=== PATIENT | female | born 1980 | race Caucasian/White ===

== ENCOUNTER 2017-05-17 07:30 | Emergency (ER) | payer SELFPAY ==
[~2017-05-17] VITALS: Ht 167.6 cm; Wt 107.0 kg
[2017-05-17 07:41] VITALS: BP 137/94; PULSE 74; RESP 18; TEMP 97.7; O2SAT 100
[2017-05-17] MEDS ORDERED: HYDROmorphone HCL PF 1 MG/ML VIAL IV PUSH ONE ×2 (08:30→09:00)
[2017-05-17] MEDS ORDERED: ONDANSETRON HCL 4 MG/2 ML VIAL IV PUSH ONE (08:30)
[2017-05-17] MEDS ORDERED: SODIUM CHLOR 0.9% 1000 ML INJ 1,000 ML IV ONE (08:30)
--- NOTE | 2017-05-17 08:38 | PD ---
HPI Chief Complaint: Abdominal Pain Time Seen by Provider: 08:26 Travel History International Travel<30 days: No Contact w/Intl Traveler<30days: No Traveled to known affect area: No History of Present Illness HPI This 37-year-old female is complaining of abdominal pain. She says she woke up at 2:00 this morning with the pain and the pain is quite severe. She has vomited repeatedly. She had a similar episode to this about 2 months ago when she was in [place] which is where she lives. At that time she was told that she had a gallbladder attack. She has done well since that episode. She has no history of hypertension or diabetes. She has had a tubal ligation she had eaten ribs last night prior to the onset of the pain. PFSH Past Medical History Gastrointestinal Disorders: Yes (GALL STONES) ?: Not LMP: 3-4 WEEKS AGO Tubal Ligation: Yes (L OVARY REMOVED) Social History Alcohol Use: No Tobacco Use: No Substance Use: No Allergies-Medications (Allergen,Severity, Reaction): Coded Allergies: No Known Allergies (Unverified , 05/17/17) Reported Meds & Prescriptions Reported Meds & Active Scripts Active Percocet (Oxycodone-Acetaminophen) 7.5-325 mg Tab 1 Tab PO Q4H PRN Zofran Odt (Ondansetron Odt) 4 Mg Tab 4 Mg SL Q6HR PRN Review of Systems General / Constitutional: No: Fever Eyes: No: Diploplia, Blurred Vision HENT: No: Headaches, Vertigo Cardiovascular: No: Chest Pain or Discomfort, Palpitations Respiratory: No: Cough, Shortness of Breath Gastrointestinal: Positive: Abdominal Pain, No: Vomiting Genitourinary: No: Frequency, Dysuria Musculoskeletal: No: Myalgias, Arthralgias Skin: No Rash Neurologic: No: Weakness Endocrine: No: Heat Intolerance Hematologic/Lymphatic: No: Easy Bruising Physical Exam Narrative GENERAL: Well-developed female SKIN: Focused skin assessment warm/dry. HEAD: Atraumatic. Normocephalic. EYES: Pupils equal and round. No scleral icterus. No injection or drainage. ENT: No nasal bleeding or discharge. Mucous membranes pink and moist. NECK: Trachea midline. No JVD. CARDIOVASCULAR: Regular rate and rhythm. No murmur appreciated. RESPIRATORY: No accessory muscle use. Clear to auscultation. Breath sounds equal bilaterally. GASTROINTESTINAL: Abdomen soft, there is epigastric tenderness without rigidity. No abnormal masses MUSCULOSKELETAL: No obvious deformities. No clubbing. No cyanosis. No edema. NEUROLOGICAL: Awake and alert. No obvious cranial nerve deficits. Motor grossly within normal limits. Normal speech. PSYCHIATRIC: Appropriate mood and affect; insight and judgment normal. Data Data Last Documented VS Vital Signs Date Time Temp Pulse Resp B/P Pulse Ox O2 Delivery O2 Flow Rate FiO2 05/17/17 07:41 97.7 74 18 137/94 100 Room Air Orders Complete Blood Count With Diff (05/17/17 08:30) Comprehensive Metabolic Panel (05/17/17 08:30) Lipase (05/17/17 08:30) Urinalysis - C+S If Indicated (05/17/17 08:30) Sodium Chlor 0.9% 1000 Ml Inj (Ns 1000 M (05/17/17 08:30) Ondansetron Inj (Zofran Inj) (05/17/17 08:30) Hydromorphone Pf Inj (Dilaudid Pf Inj) (05/17/17 08:30) Us Abdomen Gallbladder (05/17/17 08:47) Hydromorphone Pf Inj (Dilaudid Pf Inj) (05/17/17 09:00) Urine Culture (05/17/17 08:46) Ampicillin-Sulbactam Inj (Unasyn Inj) (05/17/17 10:30) Admit To Inpatient (05/17/17 ) Vital Signs (Adult) Q4H (05/17/17 10:39) Activity Oob Ad Purnima (05/17/17 10:39) Diet Npo (05/17/17 Lunch) Sodium Chlor 0.9% 1000 Ml Inj (Ns 1000 M (05/17/17 11:00) Ondansetron Inj (Zofran Inj) (05/17/17 10:45) Piperacil-Tazo 4.5 Gm Premix (Zosyn 4.5 (05/17/17 16:00) Hydromorphone Pf Inj (Dilaudid Pf Inj) (05/17/17 10:45) Labs Laboratory Tests Test 05/17/17 08:46 White Blood Count 7.6 TH/MM3 Red Blood Count 4.03 MIL/MM3 Hemoglobin 12.8 GM/DL Hematocrit 37.7 % Mean Corpuscular Volume 93.6 FL Mean Corpuscular Hemoglobin 31.6 PG Mean Corpuscular Hemoglobin 33.8 % Concent Red Cell Distribution Width 13.6 % Platelet Count 212 TH/MM3 Mean Platelet Volume 8.2 FL Neutrophils (%) (Auto) 84.3 % Lymphocytes (%) (Auto) 12.3 % Monocytes (%) (Auto) 2.6 % Eosinophils (%) (Auto) 0.4 % Basophils (%) (Auto) 0.4 % Neutrophils # (Auto) 6.5 TH/MM3 Lymphocytes # (Auto) 0.9 TH/MM3 Monocytes # (Auto) 0.2 TH/MM3 Eosinophils # (Auto) 0.0 TH/MM3 Basophils # (Auto) 0.0 TH/MM3 CBC Comment DIFF FINAL Differential Comment Urine Collection Type CLEAN CATCH Urine Color YELLOW Urine Turbidity SLIGHT Urine pH 6.0 Urine Specific Ideal 1.024 Urine Protein NEG mg/dL Urine Glucose (UA) NEG mg/dL Urine Ketones NEG mg/dL Urine Occult Blood NEG Urine Nitrite NEG Urine Bilirubin NEG Urine Leukocyte Esterase NEG Urine WBC 0-2 /hpf Urine Squamous Epithelial > 8 /hpf Cells Urine Bacteria MOD /hpf Microscopic Urinalysis Comment CULTURE INDICATED Urine Collection Time 08:46 Sodium Level 136 MEQ/L Potassium Level 3.8 MEQ/L Chloride Level 103 MEQ/L Carbon Dioxide Level 25.6 MEQ/L Anion Gap 7 MEQ/L Blood Urea Nitrogen 16 MG/DL Creatinine 0.86 MG/DL Estimat Glomerular Filtration 75 ML/MIN Rate Random Glucose 109 MG/DL Calcium Level 8.2 MG/DL Total Bilirubin 0.4 MG/DL Aspartate Amino Transf 15 U/L (AST/SGOT) Alanine Aminotransferase 23 U/L (ALT/SGPT) Alkaline Phosphatase 86 U/L Total Protein 7.5 GM/DL Albumin 3.3 GM/DL Lipase 106 U/L [facility] Medical Decision Making Medical Screen Exam Complete: Yes Emergency Medical Condition: Yes Medical Record Reviewed: Yes Differential Diagnosis Differential includes cholelithiasis, biliary colic, cholecystitis, pancreatitis Narrative Course White count is normal. Lipase is normal. Ultrasound was obtained was a question of a filling defect in the common bile duct may represent a stone. There is wall thickening of the gallbladder with patchy areas of wall apparent echogenicity which may be mass stone or polyps. MRCP is recommended. I have discussed the findings with the patient and the plan was to admit the patient to the hospital for further evaluation. Patient however says she cannot be admitted. She lives in [place] and says she will drive directly there and seek medical care. I have explained the risks of infection and other complications but she is quite insistent that she mostly. I will give 1 dose of Unasyn prior to discharge and will dispense a few tablets of Percocet and Zofran for her trip Diagnosis Primary Impression: Abdominal pain Scripts Oxycodone-Acetaminophen (Percocet)7.5-325 mg Tab1 Tab PO Q4H PRN (PAIN) #7 TAB Ref 0 Prov:Mahendra Morton MD 05/17/17 Ondansetron Odt (Zofran Odt)4 Mg Tab4 Mg SL Q6HR PRN (Nausea/Vomiting) #4 TAB Ref 0 Prov:Mahendra Morton MD 05/17/17 Disposition: 01 DISCHARGE HOME Condition: Fair Mahendra Morton MD May 17, 2017 08:38
[2017-05-17 08:52] LABS: AUTOMATED NEUTROPHIL # 6.5 TH/MM3 (1.8-7.7); BASOPHIL % 0.4 % (0.0-2.0); EOSINOPHIL % 0.4 % (0.0-4.0); HEMATOCRIT 37.7 % (35.0-46.0); HEMO FLAGS DIFF FINAL; LYMPH % 12.3 % (9.0-44.0); LYMPHOCYTE # 0.9 TH/MM3 (1.0-4.8); MEAN CELL VOLUME 93.6 FL (80.0-100.0); MEAN CORPUSCULAR HEMOGLOBIN 31.6 PG (27.0-34.0); MEAN CORPUSCULAR HGB CONC 33.8 % (32.0-36.0); MONO % 2.6 % (0.0-8.0); NEUT % 84.3 % (16.0-70.0); PLATELET COUNT 212 TH/MM3 (150-450); RED BLOOD COUNT 4.03 MIL/MM3 (4.00-5.30); RED CELL DISTRIBUTION WIDTH 13.6 % (11.6-17.2); WHITE BLOOD COUNT 7.6 TH/MM3 (4.0-11.0)
[2017-05-17 08:53] LABS: BLOOD, URINE NEG (NEG); GLUCOSE,URINE NEG (NEG); KETONE, URINE NEG (NEG); NITRITE,URINE NEG (NEG)
[2017-05-17 09:01] LABS: METHOD OF COLLECTION CLEAN CATCH; URINE COLOR YELLOW (YELLW/STRAW); WBC, URINE 0-2 /hpf (0-5)
[2017-05-17 09:02] LABS: BACTERIA, URINE MOD /hpf; CHLORIDE 103 MEQ/L (98-107); COMMENT (UR) CULTURE INDICATED; CULTURE IF INDICATED CULTURE INDICATED; POTASSIUM 3.8 MEQ/L (3.5-5.1); SODIUM (NA) 136 MEQ/L (136-145); SQUAMOUS EPITHELIAL CELL URINE > 8 /hpf (0-5)
[2017-05-17 09:06] LABS: ANION GAP 7 MEQ/L (5-15); BICARBONATE 25.6 MEQ/L (21.0-32.0); BLOOD UREA NITROGEN 16 MG/DL (7-18)
[2017-05-17 09:09] LABS: ALT (GPT) 23 U/L (10-53); AST (GOT) 15 U/L (15-37); GLOMERULAR FILTRATION RATE 75 ML/MIN (>89)
[2017-05-17 09:10] LABS: TOTAL BILIRUBIN ADULT 0.4 MG/DL (0.2-1.0)
[2017-05-17 09:12] LABS: ALKALINE PHOSPHATASE 86 U/L (45-117)
--- NOTE | 2017-05-17 09:57 | RADRPT ---
EXAM DATE/TIME: 05/17/2017 08:58 [facility] COMPARISON: No previous studies available for comparison. INDICATIONS : Gallstones. MEDICAL HISTORY : Gallstones. SURGICAL HISTORY : Tubal ligation. Left oophorectomy. ENCOUNTER: Initial ACUITY: 1 day PAIN SCORE: 10/10 LOCATION: Right upper quadrant MEASUREMENTS: LIVER: 16.3 cm length COMMON DUCT: 7 mm RIGHT KIDNEY: 10.5 x 5.5 x 4.2 cm FINDINGS: LIVER: Heterogeneous increased echogenicity of the liver. No discrete mass or intrahepatic ductal dilatation . COMMON DUCT: Filling defect in the CBD may be a stone. The duct is nondilated. GALLBLADDER: Mild wall thickening. Patchy areas of wall adherent echogenicity may be mass, stone or polyps. PANCREAS: Poorly seen RIGHT KIDNEY: No evidence of hydronephrosis, stone, or mass. CONCLUSION: Abnormalities of the liver and hepatobiliary system warranting further evaluation. MRCP is recommende d Nish Jeong MD on May 17, 2017 at 9:51 Board Certified Radiologist. This report was verified electronically.
[2017-05-17] MEDS ORDERED: PERC7.5T13 PO (10:29)
[2017-05-17] MEDS ORDERED: ZOFR4TAB3 SL (10:29)
[2017-05-17] MEDS ORDERED: AMPICILLIN-SULBACTAM INJ 3 GM in SODIUM CHLORIDE 0.9% INJ 100 ML IV ONE (10:30)
[2017-05-17] MEDS ORDERED: ONDANSETRON HCL 4 MG/2 ML VIAL IVP PRN (10:45)
[2017-05-17] MEDS ORDERED: HYDROmorphone HCL PF 1 MG/ML VIAL IV PUSH PRN (10:45)
[2017-05-17] MEDS ORDERED: SODIUM CHLOR 0.9% 1000 ML INJ 1,000 ML IV SCH (11:00)
[2017-05-17 12:13] VITALS: BP 116/74; PULSE 76; RESP 18; O2SAT 98
[2017-05-17] MEDS ORDERED: PIPERACIL-TAZO 4.5 GM PREMIX 100 ML IV SCH (16:00)
== END 2017-05-17 12:15 | disposition home or self-care (01) ==
LOC: PHED 07:30
DX: R10.9 Unspecified abdominal pain (principal); R11.10 Vomiting, unspecified; Z87.19 Personal history of other diseases of the digestive system
CPT/HCPCS: 76705; 80053; 81001; 83690; 85025; 87086; 96374; 96375; 96376; 99284; J0295; J1170; J2405; J7030